=== PATIENT | female | born 1975 | race Caucasian/White ===

== ENCOUNTER 2017-04-07 11:13 | Emergency (ER) | payer BC ==
[2017-04-07 12:40] LABS: BASOPHIL % 0.1 % (0-2); PLATELET COUNT 234 x10^3mcL (130-400)
[2017-04-07 12:43] LABS: RED CELL DISTRIBUTION WIDTH 14.7 % (11.5-14.5)
[2017-04-07 12:51] LABS: CALCIUM 8.9 mg/dL (8.5-10.1); CARBON DIOXIDE 24.9 mmol/L (21-32); CHLORIDE SERUM 103 mmol/L (98-107); CREATININE SERUM 0.8 mg/dL (0.6-1.0); GFR1 > 60 mL/min; GLUCOSE SERUM 98 mg/dL (74-106); POTASSIUM SERUM 3.3 mmol/L (3.5-5.1); SODIUM SERUM 138 mmol/L (136-145)
[2017-04-07 13:02] LABS: ALKALINE PHOSPHATASE 80 U/L (46-116); ALT/SGPT 16 U/L (14-59); AMYLASE 73 U/L (25-115); AST/SGOT 17 U/L (15-37); BILIRUBIN TOTAL 0.39 mg/dL (0.20-1.00); LIPASE 101 IU/L (73-393)
[2017-04-07 13:04] LABS: ALBUMIN 3.1 g/dL (3.4-5.0); TOTAL PROTEIN, SERUM 8.3 g/dL (6.4-8.2)
[2017-04-07 14:47] VITALS: BP 120/81
== END 2017-04-07 14:47 | disposition home or self-care (01) ==
LOC: ED 11:13
PROVIDERS: Emergency Medicine
DX: R10.9 Unspecified abdominal pain (principal); R11.10 Vomiting, unspecified; R19.7 Diarrhea, unspecified
CPT/HCPCS: 83880; 87046; 87046-59; J1885; J2405; J7030